=== PATIENT | male | born 1995 | race Caucasian/White ===

== ENCOUNTER → 2019-09-12 | Outpatient (CLI) | payer OTHER ==
[2019-09-12 14:34] LABS: FREE T3 2.75 pg/mL (2.77-5.27); FREE T4 (FREE THYROXINE) 0.95 ng/dL (0.78-2.19)
[2019-09-12 15:37] LABS: THYROID STIMULATING HORMONE 2.56 uIU/mL (0.47-4.68)
== END ==
LOC: OD 12:50
PROVIDERS: ATTEND Internal Medicine Gastroenterology
DX: R63.4 Abnormal weight loss (principal)
CPT/HCPCS: 36415; 84439; 84443; 84481

== ENCOUNTER 2019-09-27 09:51 | Day surgery (SDC) | payer OTHER ==
[~2019-09-27 09:51] MED LIST: LIDOCAINE 2% INJ-PF (20 MG/ML) 2 ML AMPUL ONE
[2019-09-27] MEDS ORDERED: PROPOFOL INJ 200 MG/20 ML VIAL IV ONE ×2 (10:57→12:35)
[2019-09-27 14:31] VITALS: BP 113/72
--- NOTE | 2019-09-27 15:12 | Operative Report ---
Operative Report DATE OF SURGERY: 09/27/19 Operative Report: Risk benefits and alternatives of the procedure perforation requiring surgery are discussed with the patient time out is called propofol sedation provided colonoscopy is performed to the cecum prep is good EGD is performed as well all segments are visualized Prep was good. PREOPERATIVE DIAGNOSIS: Weight loss. Dyspepsia. Change in bowel habits POSTOPERATIVE DIAGNOSIS: Terminal ileitis status post biopsy. Gastritis status post biopsy. Duodenitis rule out celiac disease. Hiatal hernia OPERATION: Colonoscopy with biopsy. EGD with biopsy SURGEON: KIMBERLEE BASSETT ANESTHESIA: LMAC TISSUE REMOVED OR ALTERED: As noted above. COMPLICATIONS: None. ESTIMATED BLOOD LOSS: None. INTRAOPERATIVE FINDINGS: As noted above. PROCEDURE: Patient tolerated the procedure well. No immediate postprocedure complications are noted. Patient is discharged in good condition. Discharge date 09/27/2019. Discharge diet: Regular. Discharge activity: Regular. 2 to 3-week follow-up to discuss findings. Patient is instructed to call the office or proceed to the emergency room should there be any further questions Wait on the pathology.
== END 2019-09-27 13:50 | disposition home or self-care (01) ==
LOC: OROUT 09:51
PROVIDERS: ATTEND Internal Medicine Gastroenterology
DX: K52.9 Noninfective gastroenteritis and colitis, unspecified (principal); K29.50 Unspecified chronic gastritis without bleeding; K44.9 Diaphragmatic hernia without obstruction or gangrene; K29.80 Duodenitis without bleeding; F17.210 Nicotine dependence, cigarettes, uncomplicated
CPT/HCPCS: 43239; 45380; 88305 ×2; 00813; J2704; J3490; 813